=== PATIENT | male | born 1985 | race Caucasian/White ===

== ENCOUNTER 2022-08-30 15:44 | Emergency (ER) | payer OTHER ==
[~2022-08-30] VITALS: Ht 185.4 cm; Wt 98.4 kg
[2022-08-30 16:36] LABS: Source, Urine Clean Catch
[2022-08-30 16:38] LABS: BASOPHILS ABSOLUTE AUTO 0.12 K/mm3 (0.00-0.23); BASOPHILS PERCENT AUTO 1 % (0-2); EOSINOPHILS ABSOLUTE AUTO 0.47 K/mm3 (0.00-0.68); EOSINOPHILS PERCENT AUTO 4 % (0-6); Hematocrit 47.9 % (37.0-53.0); Hemoglobin 16.8 g/dL (13.5-17.5); IMMATURE GRAN ABSOLUTE AUTO 0.05 K/mm3 (0.00-0.10); IMMATURE GRAN PERCENT AUTO 1 % (0-1); LYMPHOCYTES ABSOLUTE AUTO 2.69 K/mm3 (0.84-5.20); LYMPHOCYTES PERCENT AUTO 25 % (21-46); MONOCYTES ABSOLUTE AUTO 0.68 K/mm3 (0.16-1.47); MONOCYTES PERCENT AUTO 6 % (4-13); Mean Corpuscular HGB 28.5 pg (26.0-34.0); Mean Corpuscular HGB Conc 35.1 g/dL (31.5-36.5); Mean Corpuscular Volume 81 fL (80-100); Mean Platelet Volume 9.7 fL (9.1-12.4); NEUTROPHILS PERCENT AUTO 63 % (41-73); Platelet Count 335 K/mm3 (150-400); RDW Coefficient Variation 11.6 % (11.7-14.2); RDW Standard Deviation 33.9 fL (35.1-46.3); White Blood Cell Count 10.91 K/mm3 (4.00-11.30)
[2022-08-30 16:49] LABS: Appearance, Urine Hazy (Clear); Bilirubin, Urine Neg (Neg); Blood, Urine 5+ (Neg); Color, Urine Amber (P-Yellow); Glucose Qualitative, Urine 4+ (Neg); Ketones, Urine 1+ (Neg); Leukocyte Esterase, Urine Neg (Neg); Nitrite, Urine Neg (Neg); Protein, Urine 2+ (Neg); Specific Gravity, Urine 1.015 (1.003-1.022); Urobilinogen, Urine NORM (Normal)
[2022-08-30 17:02] LABS: Granular Casts 0-2 /lpf (0)
[2022-08-30 17:02] LABS: Albumin, Blood 4.2 g/dL (3.4-5.0); Albumin/Globulin Ratio 1.2 (0.8-1.8); Bilirubin, Total 0.7 mg/dL (0.1-1.0); Bun/Creatinine Ratio 18.1 (12.0-20.0); Calcium, Blood 9.8 mg/dL (8.5-10.1); Creatinine, Blood 0.89 mg/dL (0.60-1.20); Globulin, Blood 3.5 g/dL (2.2-4.0); Potassium, Blood 3.5 mmol/L (3.5-5.5); Total Protein, Blood 7.7 g/dL (6.4-8.2)
[2022-08-30 17:03] LABS: Red Blood Cells, Urine 50-100 /hpf (0-2); White Blood Cells, Urine 0-2 /hpf (0-5)
[2022-08-30 17:04] LABS: Amorphous Light (0-Heavy); Bacteria Mod /hpf; Squamous Epithelial Cells Not Seen /hpf (Few)
[2022-08-30] MEDS ORDERED: Percocet 5-3251 EACH PO (19:20)
[2022-08-30] MEDS ORDERED: ONDA4ODT SL (19:20)
== END 2022-08-30 20:04 | disposition home or self-care (01) ==
LOC: ER 15:44
PROVIDERS: Physician Assistant
DX: N13.2 Hydronephrosis with renal and ureteral calculous obstruction (principal); E11.65 Type 2 diabetes mellitus with hyperglycemia; E03.9 Hypothyroidism, unspecified; Z79.4 Long term (current) use of insulin; Z79.899 Other long term (current) drug therapy
CPT/HCPCS: 36415; 74177; 80053; 81001; 83690; 85025; 87086; A9270; J1170; J1885; J2405; Q9967

== ENCOUNTER 2023-03-03 09:03 | Day surgery (SDC) | payer OTHER ==
[~2023-03-03] VITALS: Ht 185.4 cm; Wt 99.8 kg
[~2023-03-03 09:03] MED LIST: ONDA4ODT SL; Percocet 5-3251 EACH PO
[2023-03-03] MEDS ORDERED: HUMALOG JU100 UNIT/2 (09:33)
[2023-03-03] MEDS ORDERED: TRESIBA FL100 UNIT/2 (09:34)
[2023-03-03] MEDS ORDERED: LEVSOD25 (09:34)
[2023-03-03] MEDS ORDERED: OMEP20ER (09:34)
[2023-03-03] MEDS ORDERED: METO10 (09:34)
--- NOTE | 2023-03-03 11:59 | NUR ---
03/03/23 1159 Pat Sales 1145 IV REMOVED, INTACT AND WNL
[2023-03-03 12:24] VITALS: BP 110/71
== END 2023-03-03 11:59 | disposition home or self-care (01) ==
LOC: ORSCSDS 09:03
PROVIDERS: Internal Medicine Gastroenterology
PROC: 0DB98ZX Excision of Duodenum, Via Natural or Artificial Opening Endoscopic, Diagnostic (ICD-10-PCS; principal; 2023-03-03 10:15)
PROC: 0DB58ZX Excision of Esophagus, Via Natural or Artificial Opening Endoscopic, Diagnostic (ICD-10-PCS; principal; 2023-03-03 10:15)
PROC: 0DB68ZX Excision of Stomach, Via Natural or Artificial Opening Endoscopic, Diagnostic (ICD-10-PCS; principal; 2023-03-03 10:15)
DX: R10.13 Epigastric pain (principal); R14.0 Abdominal distension (gaseous); K31.7 Polyp of stomach and duodenum; K20.90 Esophagitis, unspecified without bleeding; E11.9 Type 2 diabetes mellitus without complications; E03.9 Hypothyroidism, unspecified; Z79.4 Long term (current) use of insulin; Z79.899 Other long term (current) drug therapy
CPT/HCPCS: 82947; 88305; 88342; J2704; J7120

== ENCOUNTER → 2025-01-11 | Outpatient (CLI) | payer OTHER ==
[~2025-01-11] MED LIST changes: +HUMALOG JU100 UNIT/2; +LEVSOD25; +METO10; +OMEP20ER; +TRESIBA FL100 UNIT/2
== END ==
LOC: LAB 08:15 → PLD 08:15 → LAB SHORT 08:15
DX: L57.0 Actinic keratosis (principal); L81.4 Other melanin hyperpigmentation; D48.5 Neoplasm of uncertain behavior of skin
CPT/HCPCS: 88305